=== PATIENT | male | born 1935 | race Caucasian/White ===

== ENCOUNTER → 2018-01-17 | Outpatient (CLI) | payer MEDICARE ==
[~2018-01-17] MED LIST: ASPI325; ASPI81CH; CLAR500; CLAR500 PO; CYAN100; DEXL60CA3; DILT180; DRON2.5; DRON2.5 PO; HYDACE5 PO; LATA.005SO; MECL25 PO; MEGE40SU PO; MEMA10 PO; METR500; METR500 PO; OMEP20ER; ONDA4 PO; ONDA4ODT MM; PRED20 PO; PROM25 PO; PSEU120ER; Prilosec Otc20 MG PO; Prilosec20 MG PO; SIMBRINZA 1%-0.28 ML
== END ==
LOC: PLD 13:33 → LAB SHORT 13:33
DX: D48.5 Neoplasm of uncertain behavior of skin (principal)
CPT/HCPCS: 88305

== ENCOUNTER 2018-01-26 11:33 | Day surgery (SDC) | payer MEDICARE ==
[~2018-01-26] VITALS: Ht 182.9 cm; Wt 82.3 kg
== END 2018-01-26 14:31 | disposition home or self-care (01) ==
LOC: ORSCSDS 11:33
PROVIDERS: Internal Medicine Gastroenterology
PROC: 0DB68ZX Excision of Stomach, Via Natural or Artificial Opening Endoscopic, Diagnostic (ICD-10-PCS; principal; 2018-01-26 13:00)
DX: C85.99 Non-Hodgkin lymphoma, unspecified, extranodal and solid organ sites (principal); K44.9 Diaphragmatic hernia without obstruction or gangrene; K29.60 Other gastritis without bleeding; I48.91 Unspecified atrial fibrillation; I49.9 Cardiac arrhythmia, unspecified; Z79.899 Other long term (current) drug therapy
CPT/HCPCS: 88305; 88342; J7120

== ENCOUNTER → 2018-07-24 | Outpatient (CLI) | payer MEDICARE | END | disposition home or self-care (01) | LOC: LAB SHORT 08:14 → PLD 08:14 | DX: D48.5 Neoplasm of uncertain behavior of skin (principal) | CPT/HCPCS: 88305 ==

== ENCOUNTER → 2019-09-24 | Outpatient (CLI) | payer MEDICARE | END | disposition home or self-care (01) | LOC: LAB SHORT 07:21 → PLD 07:21 | DX: D04.62 Carcinoma in situ of skin of left upper limb, including shoulder (principal) | CPT/HCPCS: 88305 ==

== ENCOUNTER → 2019-10-08 | Outpatient (CLI) | payer MEDICARE | END | disposition home or self-care (01) | LOC: PLD 08:14 → LAB SHORT 08:14 | DX: C44.222 Squamous cell carcinoma of skin of right ear and external auricular canal (principal) | CPT/HCPCS: 88305 ==

== ENCOUNTER → 2020-06-04 | Outpatient (CLI) | payer MEDICARE | LOC: LAB SHORT 11:21 → PLD 11:21 | DX: C44.229 Squamous cell carcinoma of skin of left ear and external auricular canal (principal) | CPT/HCPCS: 88305 ==

== ENCOUNTER 2020-10-17 01:01 | Day surgery (SDC) | payer MEDICARE | END 2020-10-17 23:12 | disposition home or self-care (01) | LOC: WOUND 01:01 | DX: C44.40 Unspecified malignant neoplasm of skin of scalp and neck (principal); I48.91 Unspecified atrial fibrillation; I49.9 Cardiac arrhythmia, unspecified; Z79.899 Other long term (current) drug therapy | CPT/HCPCS: G0463 ==

== ENCOUNTER 2021-04-27 10:40 | Emergency (ER) | payer MEDICARE ==
[~2021-04-27] VITALS: Ht 185.4 cm; Wt 81.7 kg
[~2021-04-27 10:40] MED LIST changes: -CYAN100; +Vitamin B-121000 MCG PO
[2021-04-27 11:10] LABS: BASOPHILS ABSOLUTE AUTO 0.12 K/mm3 (0.00-0.23); BASOPHILS PERCENT AUTO 1 % (0-2); EOSINOPHILS ABSOLUTE AUTO 0.04 K/mm3 (0.00-0.68); EOSINOPHILS PERCENT AUTO 0 % (0-6); Hematocrit 46.1 % (37.0-53.0); Hemoglobin 14.6 g/dL (13.5-17.5); IMMATURE GRAN ABSOLUTE AUTO 0.26 K/mm3 (0.00-0.10); IMMATURE GRAN PERCENT AUTO 1 % (0-1); LYMPHOCYTES PERCENT AUTO 4 % (21-46); MONOCYTES ABSOLUTE AUTO 1.13 K/mm3 (0.16-1.47); MONOCYTES PERCENT AUTO 5 % (4-13); Mean Corpuscular HGB Conc 31.7 g/dL (31.5-36.5); Mean Corpuscular Volume 92 fL (80-100); Mean Platelet Volume 12.2 fL (9.1-12.4); NEUTROPHILS ABSOLUTE AUTO 22.18 K/mm3 (1.96-9.15); NEUTROPHILS PERCENT AUTO 90 % (41-73); Platelet Count 266 K/mm3 (150-400); RDW Coefficient Variation 12.6 % (11.7-14.2); RDW Standard Deviation 42.4 fL (35.1-46.3); Red Blood Cell Count 5.03 M/mm3 (4.30-5.90); White Blood Cell Count 24.73 K/mm3 (4.00-11.30)
[2021-04-27 11:21] LABS: Albumin, Blood 2.7 g/dL (3.4-5.0); Albumin/Globulin Ratio 0.5 (0.8-1.8); Bilirubin, Total 1.1 mg/dL (0.1-1.0); Bun/Creatinine Ratio 32.6 (12.0-20.0); Calcium, Blood 9.5 mg/dL (8.5-10.1); Creatinine, Blood 1.38 mg/dL (0.60-1.20); Globulin, Blood 5.4 g/dL (2.2-4.0); Potassium, Blood 5.1 mmol/L (3.5-5.5); Total Protein, Blood 8.1 g/dL (6.4-8.2)
[2021-04-27 14:43] LABS: Source, Urine Clean Catch
[2021-04-27 14:47] LABS: Appearance, Urine Clear (Clear); Bilirubin, Urine Neg (Neg); Blood, Urine 2+ (Neg); Color, Urine Amber (P-Yellow); Glucose Qualitative, Urine Neg (Neg); Ketones, Urine Neg (Neg); Leukocyte Esterase, Urine 1+ (Neg); Nitrite, Urine Neg (Neg); Protein, Urine 3+ (Neg); Specific Gravity, Urine 1.025 (1.003-1.022); Urobilinogen, Urine 1+ (Normal)
[2021-04-27 14:57] LABS: Hyaline Casts 0-2 /lpf (0-2)
[2021-04-27 14:58] LABS: Bacteria Mod /hpf; Squamous Epithelial Cells Rare /hpf (Few); White Blood Cells, Urine 0-2 /hpf (0-5)
== END 2021-04-27 17:53 | disposition home or self-care (01) ==
LOC: ER 10:40
PROVIDERS: Emergency Medicine
DX: R53.1 Weakness (principal); R10.9 Unspecified abdominal pain; Z79.899 Other long term (current) drug therapy
CPT/HCPCS: 51701; 74176; 80053; 81001; 83690; 85025; 87086; 93005; 93010; 99284-25

== ENCOUNTER 2021-04-28 12:43 | Inpatient (IN) | payer MEDICARE ==
[~2021-04-28] VITALS: Ht 182.9 cm; Wt 76.4 kg
[2021-04-28 13:04] LABS: BASOPHILS PERCENT AUTO 0 % (0-2); EOSINOPHILS ABSOLUTE AUTO 0.13 K/mm3 (0.00-0.68); EOSINOPHILS PERCENT AUTO 1 % (0-6); Hematocrit 45.9 % (37.0-53.0); Hemoglobin 14.8 g/dL (13.5-17.5); IMMATURE GRAN ABSOLUTE AUTO 0.24 K/mm3 (0.00-0.10); IMMATURE GRAN PERCENT AUTO 1 % (0-1); LYMPHOCYTES ABSOLUTE AUTO 1.27 K/mm3 (0.84-5.20); LYMPHOCYTES PERCENT AUTO 5 % (21-46); MONOCYTES ABSOLUTE AUTO 0.99 K/mm3 (0.16-1.47); MONOCYTES PERCENT AUTO 4 % (4-13); Mean Corpuscular HGB 29.4 pg (26.0-34.0); Mean Corpuscular HGB Conc 32.2 g/dL (31.5-36.5); Mean Corpuscular Volume 91 fL (80-100); Mean Platelet Volume 12.1 fL (9.1-12.4); NEUTROPHILS ABSOLUTE AUTO 20.92 K/mm3 (1.96-9.15); NEUTROPHILS PERCENT AUTO 89 % (41-73); Platelet Count 232 K/mm3 (150-400); RDW Coefficient Variation 12.7 % (11.7-14.2); RDW Standard Deviation 41.9 fL (35.1-46.3); Red Blood Cell Count 5.03 M/mm3 (4.30-5.90); White Blood Cell Count 23.65 K/mm3 (4.00-11.30)
[2021-04-28 13:27] LABS: Albumin, Blood 2.7 g/dL (3.4-5.0); Albumin/Globulin Ratio 0.6 (0.8-1.8); Bilirubin, Total 0.7 mg/dL (0.1-1.0); Bun/Creatinine Ratio 40.5 (12.0-20.0); Creatinine, Blood 1.31 mg/dL (0.60-1.20); Globulin, Blood 4.5 g/dL (2.2-4.0); Potassium, Blood 3.8 mmol/L (3.5-5.5); Total Protein, Blood 7.2 g/dL (6.4-8.2)
--- NOTE | 2021-04-28 18:57 | NUR ---
ARRIVES FROM E.R. AROUND 1830. MOVED TO BED. SEVERE DEMENTIA. PULLS AT LINES. DAUGHTER TO STAY NIGHT. NPO RELATIVES ST HE HAS BEEN CHOKING WHEN EATTING OR DRINKING. TO BE EVAL TOMORROW BY S.T. NONREBREATHER ON AT 4 LPM PER RELATIVES PATIENT WILL" EAT NASAL CANNULA". SATS 92% WITH PATIENT BEING IN 80'S AT HOME ON R.A. BILATERAL LOWER LOBE PNE. SECOND ANTIBIOTIC STARTED. NIGHT RN TO FINISH ADMIT. JAI
[2021-04-29 05:23] LABS: BASOPHILS ABSOLUTE AUTO 0.07 K/mm3 (0.00-0.23); BASOPHILS PERCENT AUTO 0 % (0-2); EOSINOPHILS ABSOLUTE AUTO 0.28 K/mm3 (0.00-0.68); EOSINOPHILS PERCENT AUTO 2 % (0-6); Hematocrit 42.6 % (37.0-53.0); Hemoglobin 13.6 g/dL (13.5-17.5); IMMATURE GRAN ABSOLUTE AUTO 0.18 K/mm3 (0.00-0.10); IMMATURE GRAN PERCENT AUTO 1 % (0-1); LYMPHOCYTES ABSOLUTE AUTO 0.62 K/mm3 (0.84-5.20); LYMPHOCYTES PERCENT AUTO 3 % (21-46); MONOCYTES ABSOLUTE AUTO 0.49 K/mm3 (0.16-1.47); MONOCYTES PERCENT AUTO 3 % (4-13); Mean Corpuscular HGB 29.8 pg (26.0-34.0); Mean Corpuscular HGB Conc 31.9 g/dL (31.5-36.5); Mean Corpuscular Volume 93 fL (80-100); Mean Platelet Volume 12.1 fL (9.1-12.4); NEUTROPHILS ABSOLUTE AUTO 16.97 K/mm3 (1.96-9.15); NEUTROPHILS PERCENT AUTO 91 % (41-73); Platelet Count 202 K/mm3 (150-400); RDW Coefficient Variation 12.9 % (11.7-14.2); RDW Standard Deviation 44.2 fL (35.1-46.3); Red Blood Cell Count 4.57 M/mm3 (4.30-5.90); White Blood Cell Count 18.61 K/mm3 (4.00-11.30)
--- NOTE | 2021-04-29 05:23 | NUR ---
RECEIVED REPORT FROM BHAVIN ORTEGA WHO EXPRESSED PATIENT HAVING SWALLOWING DIFFICULTIES CONCERNS HE COULD ASPRIATE, WAITING ON SPEECH EVAL AND CURRENTLY IS NPO. PATIENT SLEPT GOOD THROUGH THE NIGHT, HE REFUSED TO KEEP OXYGEN ON AND DAUGHTER DIDN'T WANT US TO ATTEMPT WHEN APPROACHED, DAUGHTER STATED IT BOTHERS HIM HAVING IT ON HIS NOSE, HE PRESENTS A MOUTHE BREATHER AND OFFERED TO LOWER THE MASK AND PUT IT SO IT GENTLE BLOWS OXYGEN, DAUGHTER SAID HE WOULDN'T KEEP IT ON. UPON CHECKING O2 SATURATIONS PATIENT WAS 92% AND STAYING ABOVE THE O2 ORDERS OF 90% SATURATIONS. JORDAN ALSO REPORTED UPON TRYING TO INSERT F/C PATIENT BECAME VERY AGITATED AND WAS UNSUCCESSFUL WITH INSERTION.
[2021-04-29 06:01] LABS: Alanine Aminotransfer (ALT/SGP 48 U/L (12-78); Albumin, Blood 2.2 g/dL (3.4-5.0); Albumin/Globulin Ratio 0.6 (0.8-1.8); Alk Phos 125 U/L (50-136); Anion Gap 4 mmol/L (6-16); Aspartate Aminotrans (AST/SGOT 45 U/L (12-37); Bilirubin, Total 0.5 mg/dL (0.1-1.0); Blood Urea Nitrogen 42 mg/dL (8-24); Bun/Creatinine Ratio 35.9 (12.0-20.0); CO2, Blood 26 mmol/L (21-32); Calcium, Blood 8.3 mg/dL (8.5-10.1); Chloride, Blood 123 mmol/L (98-108); Creatinine, Blood 1.17 mg/dL (0.60-1.20); Globulin, Blood 3.9 g/dL (2.2-4.0); Glomerular Filtration Rate >60 (60-); Glucose, Blood 112 mg/dL (70-99); Potassium, Blood 3.7 mmol/L (3.5-5.5); Sodium, Blood 153 mmol/L (136-145); Total Protein, Blood 6.1 g/dL (6.4-8.2)
[2021-04-29 17:14] LABS: Source, Urine Catheter
[2021-04-29 17:23] LABS: Appearance, Urine Clear (Clear); Bilirubin, Urine Neg (Neg); Blood, Urine 2+ (Neg); Color, Urine Yellow (P-Yellow); Glucose Qualitative, Urine Neg (Neg); Ketones, Urine 1+ (Neg); Leukocyte Esterase, Urine Neg (Neg); Nitrite, Urine Neg (Neg); Protein, Urine 2+ (Neg); Urobilinogen, Urine 1+ (Normal)
[2021-04-29 17:46] LABS: Bacteria Mod /hpf; Squamous Epithelial Cells Rare /hpf (Few); White Blood Cells, Urine 0-2 /hpf (0-5)
--- NOTE | 2021-04-29 17:53 | NUR ---
PT CONTINUES TO DESAT WHEN SITTING UP OR TURNING FOR PT CARE, ON 4L. ORAL CARE HAS BEEN COMPLETED Q2 HOURS PER ST REQUEST. PT REMAINS ON STRICT NPO AND STARTED ON CLINAMIX AND LIPIDS. REMAINS CONFUSED/ORIENTED TO FAMILY. IV LINE RUNNING AND WRAPPED IN NICOLE BANDAGE TO PREVENT PULLING FROM PT. CONDOM CATH IN PLACE AND UA SENT TO LAB. STAFF WILL CONT TO MONITOR.
[2021-04-30 05:08] LABS: BASOPHILS ABSOLUTE AUTO 0.05 K/mm3 (0.00-0.23); BASOPHILS PERCENT AUTO 0 % (0-2); EOSINOPHILS ABSOLUTE AUTO 0.66 K/mm3 (0.00-0.68); EOSINOPHILS PERCENT AUTO 5 % (0-6); Hemoglobin 13.4 g/dL (13.5-17.5); IMMATURE GRAN ABSOLUTE AUTO 0.11 K/mm3 (0.00-0.10); IMMATURE GRAN PERCENT AUTO 1 % (0-1); LYMPHOCYTES PERCENT AUTO 5 % (21-46); MONOCYTES ABSOLUTE AUTO 0.42 K/mm3 (0.16-1.47); MONOCYTES PERCENT AUTO 3 % (4-13); Mean Corpuscular HGB 28.9 pg (26.0-34.0); Mean Corpuscular HGB Conc 31.2 g/dL (31.5-36.5); Mean Corpuscular Volume 93 fL (80-100); Mean Platelet Volume 12.1 fL (9.1-12.4); NEUTROPHILS PERCENT AUTO 87 % (41-73); Platelet Count 211 K/mm3 (150-400); RDW Coefficient Variation 12.7 % (11.7-14.2); RDW Standard Deviation 43.5 fL (35.1-46.3); Red Blood Cell Count 4.64 M/mm3 (4.30-5.90); White Blood Cell Count 14.54 K/mm3 (4.00-11.30)
[2021-04-30 05:31] LABS: Alanine Aminotransfer (ALT/SGP 40 U/L (12-78); Albumin, Blood 2.2 g/dL (3.4-5.0); Albumin/Globulin Ratio 0.6 (0.8-1.8); Alk Phos 125 U/L (50-136); Anion Gap 4 mmol/L (6-16); Aspartate Aminotrans (AST/SGOT 47 U/L (12-37); Bilirubin, Total 0.4 mg/dL (0.1-1.0); Blood Urea Nitrogen 30 mg/dL (8-24); Bun/Creatinine Ratio 31.2 (12.0-20.0); CO2, Blood 26 mmol/L (21-32); Calcium, Blood 8.1 mg/dL (8.5-10.1); Chloride, Blood 121 mmol/L (98-108); Creatinine, Blood 0.96 mg/dL (0.60-1.20); Glomerular Filtration Rate >60 (60-); Glucose, Blood 113 mg/dL (70-99); Magnesium, Blood 2.6 mg/dL (1.6-2.4); Phosphorus, Blood 2.6 mg/dL (2.5-4.9); Potassium, Blood 3.5 mmol/L (3.5-5.5); Sodium, Blood 151 mmol/L (136-145); Total Protein, Blood 6.2 g/dL (6.4-8.2); Triglycerides 190 mg/dL (30-160)
--- NOTE | 2021-04-30 08:12 | NUR ---
ABDI WAS RESTLESS ALL NIGHT. HE REFUSED TO WEAR 02 AND KEPT PULLING IT OFF AND PLAYING WITH IT. SATURATIONS REMAINED BETWEEN 88 AND 92% ON ROOM AIR WHILE HE WAS QUIET, AND THAT HELPED HIM FORGET ABOUT HIS IV SO THAT HE WOULDN'T PULL AT IT. PATIENT IS PLEASANT AND TRIES HIS BEST TO FOLLOW COMMANDS. 3MG IV HALDOL GIVEN ONCE BUT ONLY HAD EFFECT FOR APPROX. 1 HOUR. DAUGHTER PRESENT AND HELPING OVERNIGHT, THEN REPLACED BY SON IN THE MORNING.
--- NOTE | 2021-04-30 12:18 | NUR ---
Spoke with ST Multani prior to visiting Pt and discussed case. Pt is recommended to remain NPO. Family has reported that Pt would not want a G-Tube placed. Family at bedside is reporting that Pt should start focusing on comfort. 85 year old male admitted to the hospital for Bilateral Pneumonia. Pt's medical history and comorbidites include: B-Cell Lymphoma, AAA, Afib, Dementia, H Pylori Infection, and Stomach Cancer. Pt is restin in bed upon arrival and is pleasantly confused. Pt appears anxious and painful as evidenced by continuous attempts to readjust himself. Pt's son Harjinder and Pt's teena Reynoso are at bedside. Reviewed current plan of care and offered therapeutic listening. Discussed options with family reporting Pt would not want a feeding tube. Son Harjinder reports having a conversation with Pt years ago. Pt reported that he would not want a feeding tube or have his life prolonged in his current condition. [place] and Harjinder report Pt would want to focus on just comfort in his current condition. Educated on comfort care and hospice philosophy with V/U made by family. Daughter Angeles calls Pt's spouse Neema and places her on speaker phone. Continued discussion regarding options including comfort care and hospice. Neema reports she would like to defer decisions to Harjinder and [place] and is also in agreement with comfort care. Neema reports inability to accept Pt back home and states she can not provide adequate care for Pt. Continued therapeutic listening and offered emtional support to family. Dr Mae into see Pt. Further discussion and examination of Pt by Dr Mae. Food and fluids discussed as an option to offer for comfort and pleasure. Family would like to keep Pt NPO. Discussed case with Teletype Telegrapher Haylee and Primary RN Chantel. Placed comfort care order, comfort care order set, and D/C maintenance medications per V/O from Dr Mae. PPS 20% ADLs 6/6 FAST 7C Palliative Care will remain available for symptom management and supportive visits.
--- NOTE | 2021-04-30 17:38 | NUR ---
Spiritual care note: Met with pt's 3 adult children at bedside. They appear tearful, loving, and devoted. They are non-voodoo but responded well to emotional affirmation and gentle industrial relations counselor. They asked some great questions and were appreciative of nearing education. Pt appears non-reponsive to voice/touch. He would reach out to unseen things from time to time. Family finds this facsinating. [facility] Treat[facility] services will remain available.
--- NOTE | 2021-04-30 17:56 | NUR ---
PATIENT PLACED ON COMFORT CARE THIS SHIFT. MULTIPLE FAMILY MEMBERS AT BEDSIDE THROUGHOUT THE DAY. MEDICATING WITH ATIVAN AND ROXINOL WITH GOOD RELIEF OF PAIN AND AGITATION. ORAL CARE Q2 HOURS AND PRN. AT THIS POINT FAMILY DOES NOT PLAN TO TAKE PATIENT HOME ON HOSPICE. CONDOM CATH IN PLACE FOR COMFORT.
--- NOTE | 2021-05-01 05:04 | NUR ---
PATIENT SLEPT FITFULLY THROUGH THE NIGHT. ROXYNOL AND ATIVAN GIVEN FREQUENTLY AND AROUND 0400 ATROPINE GTTS THEN SCOPALOMINE PATCH FOR EXCESSIVE AND VERY TENATIOUS SECRETIONS GIVEN WITH MODERATE RESULT. PATIENT WAS COUGHING HARD AND FINALLY COUGHED UP A HUGE MUCUS PLUG THAT WAS RETRIEVED FROM BACK OF MOUTH. AROUND 0500, PATIENT'S BREATHING FINALLY CALMED DOWN AND HE WAS ABLE TO SLEEP A LITTLE EASIER. SON DIAZ PRESENT IN ROOM ALL NIGHT WITH HIS DAD.
--- NOTE | 2021-05-01 11:17 | NUR ---
Comfort Care Visit Pt resting in bed with his eyes closed. Pt is non responsive with cheynne stoke breathing noted. Family at bedside and tearful. Offered emotional support and therapeutic listening. Educated family on possible S/S Pt may experience. Encouraged family to speak with Pt and offer reasurance. Family expresses appreciation of visit. Spoke with Dr Mae and Primary RN Carmen. Discussed case and concerns. Pt appears to be actively dying. Palliative Care will remain available.
--- NOTE | 2021-05-01 17:10 | NUR ---
PT HAS NOT BEEN WAKING UP TODAY. TREATED FOR COMFORT PER EMAR. FAMILY HAS BEEN AT BEDSIDE. PT RESTING AT THIS TIME Q2 TURNS THROUGHOUT SHIFT. WILL CONTINUE TO MONITOR.
--- NOTE | 2021-05-01 22:22 | NUR ---
PATIENT . TOD: 22:18
--- NOTE | 2021-05-01 22:49 | NUR ---
HOSPITALIST DR HUTCHINS NOTIFIED OF TOD: 22:18
--- NOTE | 2021-05-02 02:13 | NUR ---
FAMILY PICKUP UP ALL PATIENT BELONGINGS. [facility] SERVICE IN AN COMPLETED DISCHARGE.
== END 2021-05-01 22:18 | DRG 177 ==
LOC: ER 12:43 → MEDS 16:52
PROVIDERS: Emergency Medicine; ADMIT Family Medicine
DX: J69.0 Pneumonitis due to inhalation of food and vomit (principal); J96.01 Acute respiratory failure with hypoxia; E87.0 Hyperosmolality and hypernatremia; C85.19 Unspecified B-cell lymphoma, extranodal and solid organ sites; Z20.822 Contact with and (suspected) exposure to COVID-19; Z51.5 Encounter for palliative care; F03.90 Unspecified dementia, unspecified severity, without behavioral disturbance, psychotic disturbance, mood disturbance, and anxiety; I48.91 Unspecified atrial fibrillation; R62.7 Adult failure to thrive; E88.09 Other disorders of plasma-protein metabolism, not elsewhere classified; I71.4 Abdominal aortic aneurysm, without rupture; Z68.21 Body mass index [BMI] 21.0-21.9, adult; Z98.890 Other specified postprocedural states; Z79.899 Other long term (current) drug therapy; Z92.21 Personal history of antineoplastic chemotherapy; Z92.3 Personal history of irradiation
CPT/HCPCS: 36415; 71046; 80053; 81001; 83605; 83735; 84100; 84145; 84478; 85025; 87040; 87086; 92526; 92610; 94760; 96374; 97110; 97162; 97166; 97530; 99285-25; A9270; C9113; J0456; J0696; J1630; J1650; J2060; J3010; J3411; J7030; J7050